=== PATIENT | female | born 1960 | race Caucasian/White ===

== ENCOUNTER 2016-12-28 19:02 | Emergency (ER) | payer MEDICAID, OTHER ==
[2016-12-28] MEDS ORDERED: SODIUM CHLORIDE 0.9% 1,000 ML IV STA (19:57)
--- NOTE | 2016-12-28 20:11 | ED ---
General Adult HPI - General Chief complaint: Psychiatric Symptoms Stated complaint: [facility] sent Evaluation Time Seen by Provider: 12/28/16 19:45 Source: family, RN notes reviewed Mode of arrival: ambulatory Limitations: no limitations - History of Present Illness Initial comments: 56-year-old female with a past medical history of paranoid schizophrenia and Parkinson disease presents to the emergency department with a chief complaint of seeing people at home increased aggression poor hygiene and is decline in functioning. Family states that they have called to this before in the past and she typically has to be admitted for this. Patient states the pain to multiple doctors and social work appointments and [facility] referred them here. The patient is alert and oriented to self and place. The patient is not alert to time. She does have a touch of dementia possibly with the Parkinson's family is unsure. He states that she's not been using medications as prescribed because she sleeps for 12-14 hours a day so she misses multiple doses of medications. They state that she is declining and they believe that there needs to be an intervention. The patient does answer some questions the patient denies suicidal or homicidal ideation. - Related Data Home Medications Medication Instructions Recorded Confirmed Carbidopa-Levodopa 25-100 mg 1 tab PO TID 02/22/16 12/28/16 [Sinemet 25-100 mg] Citalopram Hydrobromide [CeleXA] 40 mg PO HS 02/22/16 12/28/16 Propranolol HCl 10 mg PO TID 02/22/16 12/28/16 ARIPiprazole [Abilify] 30 mg PO HS 12/28/16 12/28/16 rOPINIRole HCL [Requip] 2 mg PO TID 12/28/16 12/28/16 Previous Rx's Medication Instructions Recorded Amantadine HCl [Symmetrel] 100 mg PO BID #60 cap 03/03/16 Cyanocobalamin [Vitamin B-12] 500 mcg PO DAILY@1200 #30 tab 03/03/16 Oxybutynin Chloride [Ditropan] 5 mg PO BID #60 tab 03/03/16 Allergies Allergy/AdvReac Type Severity Reaction Status Date / Time codeine Allergy DIZZINESS Verified 12/28/16 20:03 Review of Systems ROS Statement: Those systems with pertinent positive or pertinent negative responses have been documented in the HPI. ROS Other: All systems not noted in ROS Statement are negative. Past Medical History Past Medical History: Neurologic Disorder, Osteoarthritis (OA) Additional Past Medical History / Comment(s): parkinsons disease History of Any Multi-Drug Resistant Organisms: None Reported Past Surgical History: No Surgical Hx Reported Past Anesthesia/Blood Transfusion Reactions: Unable to Obtain Past Psychological History: Anxiety, Depression, Schizoaffective Disorder, Schizophrenia Smoking Status: Former smoker Past Alcohol Use History: None Reported Past Drug Use History: None Reported General Exam Limitations: no limitations General appearance: alert, in no apparent distress Head exam: Present: atraumatic, normocephalic, normal inspection Eye exam: Present: normal appearance, PERRL, EOMI. Absent: scleral icterus, conjunctival injection, periorbital swelling ENT exam: Present: normal exam, mucous membranes moist Respiratory exam: Present: normal lung sounds bilaterally. Absent: respiratory distress, wheezes, rales, rhonchi, stridor Cardiovascular Exam: Present: regular rate, normal rhythm, normal heart sounds. Absent: systolic murmur, diastolic murmur, rubs, gallop, clicks GI/Abdominal exam: Present: soft, normal bowel sounds. Absent: distended, tenderness, guarding, rebound, rigid Neurological exam: Present: alert, altered. Absent: motor sensory deficit Psychiatric exam: Present: flat affect Skin exam: Present: warm, dry, intact, normal color. Absent: rash Course Vital Signs 12/28/16 12/28/16 19:11 22:17 Temperature 98.7 F 98.8 F Pulse Rate 81 50 L Respiratory 18 16 Rate Blood Pressure 115/61 119/56 O2 Sat by Pulse 97 97 Oximetry Medical Decision Making - Medical Decision Making 56-year-old female presents for decline in functioning in concern for visual hallucinations in lack of care for herself. At this time the patient does not appear to be suffering from acute medical concerns. This time the patient is cleared to be evaluated by psychiatry. At this time patient was evaluated by psychiatry and they recommended outpatient follow-up. At this time the patient is stable she is answering questions to family. This time she will be discharged home and to family care. She does contract to safety. We did discuss return for worsened follow-up. He stated he understood all cushions were answered. They will be discharged. - Lab Data Result diagrams: 12/28/16 20:25 12/28/16 20:25 Lab Results 12/28/16 12/28/16 12/28/16 Range/Units 20:25 20:25 20:25 WBC 9.3 (3.8-10.6) k/uL RBC 4.95 (3.80-5.40) m/uL Hgb 15.7 (11.4-16.0) gm/dL Hct 46.3 H (34.0-46.0) % MCV 93.6 (80.0-100.0) fL MCH 31.7 (25.0-35.0) pg MCHC 33.9 (31.0-37.0) g/dL RDW 12.4 (11.5-15.5) % Plt Count 252 (150-450) k/uL Neutrophils % 68 % Lymphocytes % 22 % Monocytes % 6 % Eosinophils % 1 % Basophils % 1 % Neutrophils # 6.3 (1.3-7.7) k/uL Lymphocytes # 2.0 (1.0-4.8) k/uL Monocytes # 0.6 (0-1.0) k/uL Eosinophils # 0.1 (0-0.7) k/uL Basophils # 0.1 (0-0.2) k/uL Sodium 144 (137-145) mmol/L Potassium 3.8 (3.5-5.1) mmol/L Chloride 105 (98-107) mmol/L Carbon Dioxide 29 (22-30) mmol/L Anion Gap 10 mmol/L BUN 11 (7-17) mg/dL Creatinine 1.00 (0.52-1.04) mg/dL Est GFR (MDRD) Af Amer >60 (>60 ml/min/1.73 sqM) Est GFR (MDRD) Non-Af 57 (>60 ml/min/1.73 sqM) Glucose 94 (74-99) mg/dL Calcium 9.8 (8.4-10.2) mg/dL Total Bilirubin 0.6 (0.2-1.3) mg/dL AST 20 (14-36) U/L ALT 20 (9-52) U/L Alkaline Phosphatase 87 (38-126) U/L Ammonia <9 (<30) umol/L Total Protein 7.7 (6.3-8.2) g/dL Albumin 4.1 (3.5-5.0) g/dL Urine Color Urine Appearance (Clear) Urine pH (5.0-8.0) Ur Specific [place] (1.001-1.035) Urine Protein (Negative) Urine Glucose (UA) (Negative) Urine Ketones (Negative) Urine Blood (Negative) Urine Nitrate (Negative) Urine Bilirubin (Negative) Urine Urobilinogen (<2.0) mg/dL Ur Leukocyte Esterase (Negative) Urine Opiates Screen (NotDetected) Ur Oxycodone Screen (NotDetected) Urine Methadone Screen (NotDetected) Ur Propoxyphene Screen (NotDetected) Ur Barbiturates Screen (NotDetected) U Tricyclic Antidepress (NotDetected) Ur Phencyclidine Scrn (NotDetected) Ur Amphetamines Screen (NotDetected) U Methamphetamines Scrn (NotDetected) U Benzodiazepines Scrn (NotDetected) Urine Cocaine Screen (NotDetected) U Marijuana (THC) Screen (NotDetected) 12/28/16 Range/Units 21:30 WBC (3.8-10.6) k/uL RBC (3.80-5.40) m/uL Hgb (11.4-16.0) gm/dL Hct (34.0-46.0) % MCV (80.0-100.0) fL MCH (25.0-35.0) pg MCHC (31.0-37.0) g/dL RDW (11.5-15.5) % Plt Count (150-450) k/uL Neutrophils % % Lymphocytes % % Monocytes % % Eosinophils % % Basophils % % Neutrophils # (1.3-7.7) k/uL Lymphocytes # (1.0-4.8) k/uL Monocytes # (0-1.0) k/uL Eosinophils # (0-0.7) k/uL Basophils # (0-0.2) k/uL Sodium (137-145) mmol/L Potassium (3.5-5.1) mmol/L Chloride (98-107) mmol/L Carbon Dioxide (22-30) mmol/L Anion Gap mmol/L BUN (7-17) mg/dL Creatinine (0.52-1.04) mg/dL Est GFR (MDRD) Af Amer (>60 ml/min/1.73 sqM) Est GFR (MDRD) Non-Af (>60 ml/min/1.73 sqM) Glucose (74-99) mg/dL Calcium (8.4-10.2) mg/dL Total Bilirubin (0.2-1.3) mg/dL AST (14-36) U/L ALT (9-52) U/L Alkaline Phosphatase (38-126) U/L Ammonia (<30) umol/L Total Protein (6.3-8.2) g/dL Albumin (3.5-5.0) g/dL Urine Color Yellow Urine Appearance Clear (Clear) Urine pH 6.5 (5.0-8.0) Ur Specific [place] 1.008 (1.001-1.035) Urine Protein Negative (Negative) Urine Glucose (UA) Negative (Negative) Urine Ketones Negative (Negative) Urine Blood Negative (Negative) Urine Nitrate Negative (Negative) Urine Bilirubin Negative (Negative) Urine Urobilinogen <2.0 (<2.0) mg/dL Ur Leukocyte Esterase Negative (Negative) Urine Opiates Screen Not Detected (NotDetected) Ur Oxycodone Screen Not Detected (NotDetected) Urine Methadone Screen Not Detected (NotDetected) Ur Propoxyphene Screen Not Detected (NotDetected) Ur Barbiturates Screen Not Detected (NotDetected) U Tricyclic Antidepress Not Detected (NotDetected) Ur Phencyclidine Scrn Not Detected (NotDetected) Ur Amphetamines Screen Not Detected (NotDetected) U Methamphetamines Scrn Not Detected (NotDetected) U Benzodiazepines Scrn Not Detected (NotDetected) Urine Cocaine Screen Not Detected (NotDetected) U Marijuana (THC) Screen Not Detected (NotDetected) - Radiology Data Radiology results: report reviewed, image reviewed Disposition Clinical Impression: Schizophrenia Disposition: HOME SELF-CARE Condition: Stable Instructions: Schizophrenia (ED), Suicide Prevention for Adults (ED) Additional Instructions: Please use medication as discussed. Please follow up with family doctor if symptoms have not improved over the next two days. Please return to the emergency room if your symptoms increase or worsen or for any other concerns. Referrals: Fili Black MD [Primary Care Provider] - 1-2 days Time of Disposition: 01:05
--- NOTE | 2016-12-28 20:24 | XR ---
EXAMINATION TYPE: XR chest 2V DATE OF EXAM: 12/28/2016 8:12 PM COMPARISON: NONE HISTORY: Cough. TECHNIQUE: Frontal and lateral views of the chest are obtained. FINDINGS: There is no focal air space opacity, pleural effusion, or pneumothorax seen. The cardiac silhouette size is within normal limits. The osseous structures are somewhat demineralized.. IMPRESSION: No suspicious acute infiltrate.
[2016-12-28 20:53] LABS: Basophils # (A) 0.1 k/uL (0-0.2); Basophils % (A) 1 %; CH 31.4; CHCM 33.7; Eosinophils # (A) 0.1 k/uL (0-0.7); Eosinophils % (A) 1 %; HCT 46.3 % (34.0-46.0); HDW 2.18; HGB 15.7 gm/dL (11.4-16.0); Luc # (Auto) 0.22; Luc % (Auto) 2; Lymphocytes % (A) 22 %; MCH 31.7 pg (25.0-35.0); MCHC 33.9 g/dL (31.0-37.0); MCV 93.6 fL (80.0-100.0); Mean Platelet Volume 7.7; Monocytes # (A) 0.6 k/uL (0-1.0); Monocytes % (A) 6 %; Neutrophils # (A) 6.3 k/uL (1.3-7.7); Neutrophils % (A) 68 %; RBC 4.95 m/uL (3.80-5.40); RDW 12.4 % (11.5-15.5); WBC 9.3 k/uL (3.8-10.6); WBC (Perox) 8.79
[2016-12-28 21:08] LABS: ALT 20 U/L (9-52); AST 20 U/L (14-36); Alkaline Phosphatase 87 U/L (38-126); Anion Gap 10 mmol/L; Blood Urea Nitrogen 11 mg/dL (7-17); Calcium 9.8 mg/dL (8.4-10.2); Carbon Dioxide 29 mmol/L (22-30); Chloride 105 mmol/L (98-107); Glucose 94 mg/dL (74-99); Non-African American GFR(MDRD) 57 (>60 ml/min/1.73 sqM); Potassium 3.8 mmol/L (3.5-5.1); Sodium 144 mmol/L (137-145); Total Bilirubin 0.6 mg/dL (0.2-1.3); Total Protein 7.7 g/dL (6.3-8.2)
[2016-12-28 22:24] LABS: Appearance,Urine Clear (Clear); Bilirubin,Urine Negative (Negative); Glucose,Urine (UA) Negative (Negative); Ketones,Urine Negative (Negative); Leukocyte Esterase,Urine Negative (Negative); Nitrite,Urine Negative (Negative); PH, Urine 6.5 (5.0-8.0); Protein,Urine Negative (Negative); Specific Gravity,Urine 1.008 (1.001-1.035); UA Billing (MACRO vs. MICRO) CHEM; Urobilinogen,Urine <2.0 mg/dL (<2.0)
[2016-12-28 22:34] VITALS: TEMP 98.8
[2016-12-29] MEDS ORDERED: OXYBUTYNIN CHLORIDE 5 MG TAB PO SCH (01:15)
[2016-12-29] MEDS ORDERED: CITALOPRAM HYDROBROMIDE 20 MG TAB PO SCH (01:15)
[2016-12-29] MEDS ORDERED: PROPRANOLOL 10 MG TAB PO SCH (01:15)
[2016-12-29] MEDS ORDERED: CARBIDOPA-LEVODOPA 25-100 MG 1 EACH TAB PO SCH (01:15)
[2016-12-29] MEDS ORDERED: ARIPiprazole 15 MG TAB PO SCH (01:15)
[2016-12-29] MEDS ORDERED: CYANOCOBALAMIN 500 MCG TAB PO SCH (01:15)
[2016-12-29 01:46] VITALS: BP 127/62; PULSE 54; RESP 18
[2016-12-29] MEDS: AMANTADINE HCL 100 MG CAP PO SCH ×2 (02:08→02:18)
== END 2016-12-29 02:18 | disposition home or self-care (01) ==
LOC: EC 19:02
DX: F20.0 Paranoid schizophrenia (principal); F03.90 Unspecified dementia, unspecified severity, without behavioral disturbance, psychotic disturbance, mood disturbance, and anxiety; F32.9 Major depressive disorder, single episode, unspecified; F41.9 Anxiety disorder, unspecified; M19.90 Unspecified osteoarthritis, unspecified site; G20 Parkinson's disease; Z87.891 Personal history of nicotine dependence; Z79.899 Other long term (current) drug therapy; Z88.5 Allergy status to narcotic agent
CPT/HCPCS: 36415; 71020; 80053; 80306; 81003; 82075; 82140; 85025; 87086; 96360; 99284

== ENCOUNTER 2017-01-22 09:17 | Emergency (ER) | payer OTHER ==
--- NOTE | 2017-01-22 09:37 | ED ---
Psych HPI - General Source: patient, RN notes reviewed Mode of arrival: ambulatory <Gely Andrews - Last Filed: 01/22/17 12:44> <Fili Morgan - Last Filed: 01/22/17 14:08> - General Chief Complaint: Psychiatric Symptoms Stated Complaint: Mental health Time Seen by Provider: 01/22/17 09:25 - History of Present Illness Initial Comments: 57 yo female presents to the emergency department with a chief complaint of her psychiatrist sending her in. Patient has a long psychiatric history. Patient' s mother on Wednesday. Patient has not been taking her medications. She has been having increased forgetfulness. He was seen by her psychiatrist yesterday and they were informed to bring her here this morning. Patient denies any complaints. There is no suicidal or homicidal thoughts. Patient has had excessive sleep. Family states the patient also does suffer from Parkinson's. They have noticed that on occasion she does have a golfing-like sensation when she is drinking. They deny any other symptoms in the patient. They state that they are here because the psychiatrist told him to come. Patient denies any recent fever, chills, shortness of breath, chest pain, back pain, abdominal pain, nausea vomiting, numbness or tingling, dysuria or hematuria, constipation or diarrhea, headaches or visual changes, or any other current symptoms. (Gely Andrews) The family also relates that she has been hearing and/or seeing things that aren 't there. She's been delusional with bizarre thought processes and is noncompliant with medications. (Fili Morgan) - Related Data Home Medications Medication Instructions Recorded Confirmed Carbidopa-Levodopa 25-100 mg 1 tab PO TID 02/22/16 01/22/17 [Sinemet 25-100 mg] Citalopram Hydrobromide [CeleXA] 40 mg PO HS 02/22/16 01/22/17 Propranolol HCl 10 mg PO TID 02/22/16 01/22/17 ARIPiprazole [Abilify] 30 mg PO HS 12/28/16 01/22/17 rOPINIRole HCL [Requip] 2 mg PO TID 12/28/16 01/22/17 Previous Rx's Medication Instructions Recorded Amantadine HCl [Symmetrel] 100 mg PO BID #60 cap 05/17/16 Cyanocobalamin [Vitamin B-12] 500 mcg PO DAILY@1200 #30 tab 03/03/16 Oxybutynin Chloride [Ditropan] 5 mg PO BID #60 tab 03/03/16 Allergies Allergy/AdvReac Type Severity Reaction Status Date / Time codeine AdvReac DIZZINESS Verified 01/22/17 09:37 Review of Systems ROS Other: All systems not noted in ROS Statement are negative. <Gely Andrews - Last Filed: 01/22/17 12:44> ROS Other: All systems not noted in ROS Statement are negative. <Fili Morgan - Last Filed: 01/22/17 14:08> ROS Statement: Those systems with pertinent positive or pertinent negative responses have been documented in the HPI. Past Medical History Past Medical History: Dementia, Neurologic Disorder, Osteoarthritis (OA) Additional Past Medical History / Comment(s): parkinsons disease History of Any Multi-Drug Resistant Organisms: None Reported Past Surgical History: No Surgical Hx Reported Past Anesthesia/Blood Transfusion Reactions: Unable to Obtain Past Psychological History: Anxiety, Depression, Schizoaffective Disorder, Schizophrenia Smoking Status: Former smoker Past Alcohol Use History: None Reported Past Drug Use History: None Reported <Gely Andrews - Last Filed: 01/22/17 12:44> General Exam Limitations: altered mental status General appearance: alert, in no apparent distress Head exam: Present: atraumatic, normocephalic, normal inspection Eye exam: Present: normal appearance, PERRL, EOMI. Absent: scleral icterus, conjunctival injection, periorbital swelling ENT exam: Present: normal exam, mucous membranes moist Neck exam: Present: normal inspection. Absent: tenderness, meningismus, lymphadenopathy Respiratory exam: Present: normal lung sounds bilaterally. Absent: respiratory distress, wheezes, rales, rhonchi, stridor Cardiovascular Exam: Present: regular rate, normal rhythm, normal heart sounds. Absent: systolic murmur, diastolic murmur, rubs, gallop, clicks GI/Abdominal exam: Present: soft, normal bowel sounds. Absent: distended, tenderness, guarding, rebound, rigid Neurological exam: Present: alert Psychiatric exam: Present: flat affect Skin exam: Present: warm, dry, intact <Gely Andrews - Last Filed: 01/22/17 12:44> Medical Decision Making <Gely Andrews - Last Filed: 01/22/17 12:44> - Lab Data Result diagrams: 01/22/17 13:15 <Fili Morgan - Last Filed: 01/22/17 14:08> - Medical Decision Making 57-year-old female presents to the emergency department with a chief complaint of needing psychiatric evaluation. This time the patient does not appear to be suffering from acute medical emergencies. As well as skin was performed that did not show any difficulties. This and the patient is cleared to be evaluated by psychiatry. At this time the patient was evaluated. The patient will be admitted to the psychiatric unit. Patient and family in agreement with the plan. (Gely Andrews) The patient is seen and examined. It is felt as though she would benefit from further psychiatric placement. The psychiatric nurse is agreeable. They are recommending transferred to another facility. The certification as completed by myself. I discussed the case with the PA and agree with the findings as documented. (Fili Morgan) - Lab Data Lab Results 01/22/17 01/22/17 Range/Units 10:19 13:15 WBC 9.0 (3.8-10.6) k/uL RBC 4.39 (3.80-5.40) m/uL Hgb 13.7 (11.4-16.0) gm/dL Hct 41.7 (34.0-46.0) % MCV 95.0 (80.0-100.0) fL MCH 31.3 (25.0-35.0) pg MCHC 32.9 (31.0-37.0) g/dL RDW 13.0 (11.5-15.5) % Plt Count 259 (150-450) k/uL Neutrophils % 63 % Lymphocytes % 26 % Monocytes % 6 % Eosinophils % 2 % Basophils % 1 % Neutrophils # 5.6 (1.3-7.7) k/uL Lymphocytes # 2.3 (1.0-4.8) k/uL Monocytes # 0.5 (0-1.0) k/uL Eosinophils # 0.2 (0-0.7) k/uL Basophils # 0.1 (0-0.2) k/uL Urine Color Yellow Urine Appearance Cloudy H (Clear) Urine pH 5.5 (5.0-8.0) Ur Specific [place] 1.027 (1.001-1.035) Urine Protein Trace H (Negative) Urine Glucose (UA) Negative (Negative) Urine Ketones Negative (Negative) Urine Blood Negative (Negative) Urine Nitrite Negative (Negative) Urine Bilirubin Negative (Negative) Urine Urobilinogen <2.0 (<2.0) mg/dL Ur Leukocyte Esterase Negative (Negative) Urine RBC 5 (0-5) /hpf Urine WBC 2 (0-5) /hpf Ur Squamous Epith Cells 1 (0-4) /hpf Calcium Oxalate Crystal Many H (None) /hpf Urine Bacteria Rare H (None) /hpf Hyaline Casts 1 (0-2) /lpf Urine Mucus Moderate H (None) /hpf Urine Opiates Screen Not Detected (NotDetected) Ur Oxycodone Screen Not Detected (NotDetected) Urine Methadone Screen Not Detected (NotDetected) Ur Propoxyphene Screen Not Detected (NotDetected) Ur Barbiturates Screen Not Detected (NotDetected) U Tricyclic Antidepress Not Detected (NotDetected) Ur Phencyclidine Scrn Not Detected (NotDetected) Ur Amphetamines Screen Not Detected (NotDetected) U Methamphetamines Scrn Not Detected (NotDetected) U Benzodiazepines Scrn Not Detected (NotDetected) Urine Cocaine Screen Not Detected (NotDetected) U Marijuana (THC) Screen Not Detected (NotDetected) Disposition Time of Disposition: 12:31 <Gely Andrews - Last Filed: 01/22/17 12:44> <Fili Morgan - Last Filed: 01/22/17 14:08> Clinical Impression: Schizophrenia, Acute psychosis Disposition: TRANSFER TO PSYCH HOSP/UNIT Condition: Stable Referrals: Fili Black MD [Primary Care Provider] - 1-2 days
[2017-01-22 10:42] LABS: Appearance,Urine Cloudy (Clear); Bacteria,Urine Rare /hpf; Bilirubin,Urine Negative (Negative); Calcium Oxalate Crystals,Urine Many /hpf; Glucose,Urine (UA) Negative (Negative); Ketones,Urine Negative (Negative); Leukocyte Esterase,Urine Negative (Negative); Mucus,Urine Moderate /hpf; Nitrite,Urine Negative (Negative); PH, Urine 5.5 (5.0-8.0); Particle Count 6515; Protein,Urine Trace (Negative); RBC,Urine 5 /hpf (0-5); Specific Gravity,Urine 1.027 (1.001-1.035); Squamous Epithelial Cell,Urine 1 /hpf (0-4); UA Billing (MACRO vs. MICRO) MICRO; Urobilinogen,Urine <2.0 mg/dL (<2.0); WBC,Urine 2 /hpf (0-5)
[2017-01-22 13:31] LABS: Basophils # (A) 0.1 k/uL (0-0.2); Basophils % (A) 1 %; CH 31.2; Eosinophils # (A) 0.2 k/uL (0-0.7); Eosinophils % (A) 2 %; HCT 41.7 % (34.0-46.0); HDW 2.16; HGB 13.7 gm/dL (11.4-16.0); Luc # (Auto) 0.25; Luc % (Auto) 3; Lymphocytes # (A) 2.3 k/uL (1.0-4.8); Lymphocytes % (A) 26 %; MCH 31.3 pg (25.0-35.0); MCHC 32.9 g/dL (31.0-37.0); Mean Platelet Volume 7.2; Monocytes # (A) 0.5 k/uL (0-1.0); Monocytes % (A) 6 %; Neutrophils # (A) 5.6 k/uL (1.3-7.7); Neutrophils % (A) 63 %; RBC 4.39 m/uL (3.80-5.40); WBC (Perox) 8.63
[2017-01-22 13:52] LABS: ALT 19 U/L (9-52); AST 17 U/L (14-36); Acetaminophen <10.0 ug/mL; Alkaline Phosphatase 75 U/L (38-126); Anion Gap 9 mmol/L; Blood Urea Nitrogen 15 mg/dL (7-17); Calcium 9.5 mg/dL (8.4-10.2); Carbon Dioxide 24 mmol/L (22-30); Chloride 109 mmol/L (98-107); Glucose 96 mg/dL (74-99); Non-African American GFR(MDRD) >60 (>60 ml/min/1.73 sqM); Potassium 4.4 mmol/L (3.5-5.1); Salicylate <1.0 mg/dL; Sodium 142 mmol/L (137-145); Total Bilirubin 0.4 mg/dL (0.2-1.3); Total Protein 6.6 g/dL (6.3-8.2)
[2017-01-22] MEDS ORDERED: CARBIDOPA-LEVODOPA 25-100 MG 1 EACH TAB PO STA (15:24)
[2017-01-22] MEDS ORDERED: PROPRANOLOL 10 MG TAB PO STA (15:25)
[2017-01-22 17:40] VITALS: BP 118/84; PULSE 82; RESP 17; TEMP 97.7
== END 2017-01-22 17:40 ==
LOC: EC 09:17
DX: F20.9 Schizophrenia, unspecified (principal); G20 Parkinson's disease; F32.9 Major depressive disorder, single episode, unspecified; Z87.891 Personal history of nicotine dependence; Z79.899 Other long term (current) drug therapy; Z88.5 Allergy status to narcotic agent
CPT/HCPCS: 36415; 80053; 80306; 81001; 82075; 83520; 85025; 87086; 99285